=== PATIENT | female | born 1995 | race Two or more races ===

== ENCOUNTER 2021-08-10 08:45 | Outpatient (CLI) | payer OTHER | END 2021-08-10 09:00 | disposition home or self-care (01) | LOC: PPH VACUNA 08:45 | PROVIDERS: ATTEND Emergency Medicine Pediatric Emergency Medicine | DX: Z23 Encounter for immunization (principal) ==

== ENCOUNTER 2022-03-30 12:33 | Outpatient (CLI) | payer OTHER | END 2022-03-30 12:34 | disposition home or self-care (01) | LOC: LAB 12:33 | PROVIDERS: ATTEND General Practice | DX: Z20.822 Contact with and (suspected) exposure to COVID-19 (principal) ==